=== PATIENT | female | born 1960 | race Caucasian/White ===

== ENCOUNTER 2018-07-19 13:31 | Emergency (ER) | payer OTHER, MEDICARE ==
[2018-07-19] MEDS ORDERED: SODIUM CHLORIDE 0.9% 1,000 ML IV ONE (13:54)
[2018-07-19] MEDS ORDERED: LORazepam 2 MG/ML VIAL IVP STA (13:54)
--- NOTE | 2018-07-19 14:03 | ED Physician Documentation ---
History of Present Illness - Stated complaint Stated Complaint: RAPID HR - Chief complaint Chief Complaint: Cardiac - History obtained from History obtained from: Patient, Family - History of Present Illness Timing: Today Pain level max: 0 Pain level now: 0 Improved by: nothing Worsened by: nothing - Additonal information Additional information: Patient is a 58-year-old female who presents to the emergency department stating that she noticed her heart racing today. States that it was up to approximately 124 bpm. States that this happened during the past with no cause found. She is not currently taking any medications. States it happened recently at the dentist office as well. Denies any recent surgery, immobilization, chest pain today. She does feel slightly short of breath and just feels tired. States has had problems with her thyroid in the past but not currently. No recent travel. Started after drinking coffee this am. Review of Systems Ten Systems: 10 systems reviewed and negative Constitutional: denies: Fever, Chills Respiratory: denies: Cough GI: denies: Vomiting, Diarrhea : denies: Dysuria Skin: denies: Rash Musculoskeletal: denies: Neck pain, Back pain Neurologic: denies: Headache PD PAST MEDICAL HISTORY - Past Medical History Past Medical History: Yes Cardiovascular: Other Respiratory: Other Endocrine/Autoimmune: None GI: GERD, Cholelithiasis : None HEENT: None Psych: None Musculoskeletal: None Derm: None - Past Surgical History Past Surgical History: Yes General: Cholecystectomy /[employer]ER: Hysterectomy - Present Medications Home Medications: Ambulatory Orders Medication Instructions Recorded Confirmed No Known Home Medications [No 07/19/18 07/19/18 Known Home Medications] - Allergies Allergies/Adverse Reactions: Allergies Allergy/AdvReac Type Severity Reaction Status Date / Time Penicillins Allergy Intermediate Hives Verified 07/26/15 12:59 glatiramer acetate * AdvReac Severe SOB/ Verified 07/26/15 13:01 [From Copaxone] Tightness in throat esomeprazole magnesium * AdvReac Intermediate Itchy Verified 07/26/15 13:01 [From Nexium] throat metoclopramide HCl * AdvReac Intermediate Hyperactivi Verified 07/26/15 13:01 [From Reglan] ty iv contrast Allergy Severe Hives Uncoded 07/26/15 13:01 - Social History Does the pt smoke?: No Smoking Status: Never smoker Does the pt drink ETOH?: No Does the pt have substance abuse?: No - Immunizations Immunizations are current?: Yes - POLST Patient has POLST: No PD ED PE NORMAL - Vitals Vital signs reviewed: Yes - General General: Alert and oriented X 3, No acute distress, Well developed/nourished - HEENT HEENT: PERRL, Moist mucous membranes - Neck Neck: Supple, no meningeal sign - Cardiac Cardiac: No murmur, Other (tachycardic, regular) - Respiratory Respiratory: No respiratory distress, Clear bilaterally - Abdomen Abdomen: Soft, Non tender, Non distended - Derm Derm: Warm and dry - Extremities Extremities: No edema, No calf tenderness / cord - Neuro Neuro: Alert and oriented X 3 - Psych Psych: Normal mood, Normal affect Results - Vitals Vitals: Vital Signs - 24 hr 07/19/18 07/19/18 13:32 15:02 Temperature 36.5 C 36.9 C Heart Rate 117 H 101 H Respiratory 18 13 Rate Blood Pressure 166/94 H 143/99 H O2 Saturation 99 97 Oxygen O2 Source Room air - EKG (time done) 1339 Rate: Rate (enter#) (111) Rhythm: Sinus tachycardia [place]: Normal Intervals: Normal MI QRS: Normal Ischemia: Normal ST segments - Labs Labs: Laboratory Tests 07/19/18 07/19/18 07/19/18 13:55 14:01 14:01 WBC 8.9 RBC 4.42 Hgb 14.0 Hct 40.8 MCV 92.2 MCH 31.7 H MCHC 34.4 RDW 13.3 Plt Count 274 MPV 8.4 Neut # (Auto) 3.6 Lymph # (Auto) 4.2 H Snyder # (Auto) 0.7 Eos # (Auto) 0.4 Baso # (Auto) 0.1 Absolute Nucleated RBC 0.01 Nucleated RBC % 0.1 D-Dimer Sodium 139 Potassium 3.5 Chloride 102 Carbon Dioxide 27 Anion Gap 10.0 BUN 14 Creatinine 0.8 Estimated GFR (MDRD) 74 L Glucose 172 H Calcium 9.1 Total Bilirubin 0.5 AST 30 ALT 42 Alkaline Phosphatase 83 Troponin I Total Protein 7.5 Albumin 4.2 Globulin 3.3 Albumin/Globulin Ratio 1.3 Lipase 31 TSH Free T4 0.66 Urine Color Urine Clarity Urine pH Ur Specific [place] Urine Protein Urine Glucose (UA) Urine Ketones Urine Occult Blood Urine Nitrite Urine Bilirubin Urine Urobilinogen Ur Leukocyte Esterase Urine RBC Urine WBC Ur Squamous Epith Cells Urine Bacteria Ur Microscopic Review Urine Culture Comments 07/19/18 07/19/18 07/19/18 14:01 14:01 14:01 WBC RBC Hgb Hct MCV MCH MCHC RDW Plt Count MPV Neut # (Auto) Lymph # (Auto) Snyder # (Auto) Eos # (Auto) Baso # (Auto) Absolute Nucleated RBC Nucleated RBC % D-Dimer < 200.0 L Sodium Potassium Chloride Carbon Dioxide Anion Gap BUN Creatinine Estimated GFR (MDRD) Glucose Calcium Total Bilirubin AST ALT Alkaline Phosphatase Troponin I < 0.04 Total Protein Albumin Globulin Albumin/Globulin Ratio Lipase TSH 3.43 Free T4 Urine Color Urine Clarity Urine pH Ur Specific [place] Urine Protein Urine Glucose (UA) Urine Ketones Urine Occult Blood Urine Nitrite Urine Bilirubin Urine Urobilinogen Ur Leukocyte Esterase Urine RBC Urine WBC Ur Squamous Epith Cells Urine Bacteria Ur Microscopic Review Urine Culture Comments 07/19/18 14:11 WBC RBC Hgb Hct MCV MCH MCHC RDW Plt Count MPV Neut # (Auto) Lymph # (Auto) Snyder # (Auto) Eos # (Auto) Baso # (Auto) Absolute Nucleated RBC Nucleated RBC % D-Dimer Sodium Potassium Chloride Carbon Dioxide Anion Gap BUN Creatinine Estimated GFR (MDRD) Glucose Calcium Total Bilirubin AST ALT Alkaline Phosphatase Troponin I Total Protein Albumin Globulin Albumin/Globulin Ratio Lipase TSH Free T4 Urine Color YELLOW Urine Clarity CLEAR Urine pH 6.0 Ur Specific [place] 1.025 Urine Protein NEGATIVE Urine Glucose (UA) NEGATIVE Urine Ketones NEGATIVE Urine Occult Blood NEGATIVE Urine Nitrite NEGATIVE Urine Bilirubin NEGATIVE Urine Urobilinogen 0.2 (NORMAL) Ur Leukocyte Esterase SMALL H Urine RBC 0-5 Urine WBC 4-5 Ur Squamous Epith Cells FEW Squamous Urine Bacteria Rare Ur Microscopic Review INDICATED Urine Culture Comments INDICATED PD MEDICAL DECISION MAKING - ED course Complexity details: reviewed results, re-evaluated patient, considered differential, d/w patient, d/w family ED course: Patient is a 58-year-old female who presents to the emergency department sinus tachycardia that started after drinking coffee today. Negative d-dimer. Clinically low risk for PE. No acute findings on laboratory testing. She feels better after Ativan. Will continue supportive care and follow-up with her doctor. We will have her avoid stimulants and caffeine. Patient counseled regarding signs and symptoms for which I believe and urgent re-evaluation would be necessary. Patient with good understanding of and agreement to plan and is comfortable going home at this time This document was made in part using voice recognition software. While efforts are made to proofread this document, sound alike and grammatical errors may occur. - Sepsis Event Vital Signs: Vital Signs - 24 hr 07/19/18 07/19/18 13:32 15:02 Temperature 36.5 C 36.9 C Heart Rate 117 H 101 H Respiratory 18 13 Rate Blood Pressure 166/94 H 143/99 H O2 Saturation 99 97 Oxygen O2 Source Room air Departure - Departure Disposition: 01 Home, Self Care Clinical Impression: Sinus tachycardia Condition: Good Instructions: ED Palpitations Follow-Up: your,doctor in 1 week [Other] Comments: Avoid stimulants and caffeine. return if you worsen. Discharge Date/Time: 07/19/18 15:04
[2018-07-19 14:07] LABS: BASOPHILS # (AUTO) 0.1 10^3/uL (0.0-0.1); BASOPHILS % (AUTO) 0.6 %; EOSINOPHILS # (AUTO) 0.4 10^3/uL (0.0-0.7); EOSINOPHILS % (AUTO) 4.2 %; LYMPHOCYTES # (AUTO) 4.2 10^3/uL (1.5-3.5); LYMPHOCYTES % (AUTO) 47.1 %; MEAN CORPUSCULAR HEMOGLOBIN 31.7 pg (27.0-31.0); MEAN CORPUSCULAR HGB CONC 34.4 g/dL (32.0-36.0); MEAN CORPUSCULAR VOLUME 92.2 fL (81.0-99.0); MEAN PLATELET VOLUME 8.4 fL (7.9-10.8); MONOCYTES # (AUTO) 0.7 10^3/uL (0.0-1.0); MONOCYTES % (AUTO) 7.5 %; NEUTROPHILS # (AUTO) 3.6 10^3/uL (1.5-6.6); NEUTROPHILS % (AUTO) 40.6 %; PLT - PLATELET COUNT 274 10^3/uL (130-450); RED BLOOD COUNT 4.42 10^6/uL (4.20-5.40); RED CELL DISTRIBUTION WIDTH 13.3 % (12.0-15.0); WHITE BLOOD COUNT 8.9 x10^3/uL (4.8-10.8)
[2018-07-19 14:14] LABS: BILIRUBIN,URINE NEGATIVE (NEGATIVE); GLUCOSE, URINE (UA) NEGATIVE (NEGATIVE); KETONES,URINE (UA) NEGATIVE (NEGATIVE); LEUKOCYTE ESTERASE, URINE SMALL (NEGATIVE); NITRITE,URINE NEGATIVE (NEGATIVE); OCCULT BLOOD,URINE NEGATIVE (NEGATIVE); PROTEIN,URINE NEGATIVE (NEGATIVE); UROBILINOGEN,URINE 0.2 (NORMAL) E.U./dL (NORMAL)
[2018-07-19 14:15] LABS: CLARITY,URINE CLEAR (CLEAR)
[2018-07-19 14:28] LABS: ALBUMIN 4.2 g/dL (3.2-5.5); ALBUMIN/GLOBULIN RATIO 1.3 (1.0-2.2); BILIRUBIN,TOTAL 0.5 mg/dL (0.2-1.0); CALCIUM 9.1 mg/dL (8.5-10.3); CREATININE 0.8 mg/dL (0.4-1.0); TOTAL PROTEIN 7.5 g/dL (6.7-8.2)
[2018-07-19 14:31] LABS: RBC,URINE 0-5 /HPF (0-5); SQUAMOUS EPITHELIAL CELL,UR FEW Squamous (<= Few)
[2018-07-19 14:32] LABS: BACTERIA,URINE Rare /HPF (None Seen)
[2018-07-19 15:03] VITALS: BP 143/99
== END 2018-07-19 15:04 | disposition home or self-care (01) ==
LOC: ED 13:31
DX: R00.0 Tachycardia, unspecified (principal)
CPT/HCPCS: 36415; 80053; 81001; 83690; 84439; 84443; 84484; 85025; 85379; 87086; 93005; 96374; 99283; J2060; 81003

== ENCOUNTER → 2018-07-22 | Outpatient (CLI) | payer OTHER, MEDICARE | LOC: LAB.R 08:00 → MERGE 20:53 | PROVIDERS: ATTEND Nurse Practitioner | DX: N39.0 Urinary tract infection, site not specified (principal) | CPT/HCPCS: 87086 ==

== ENCOUNTER → 2018-07-22 | Outpatient (CLI) | payer OTHER, MEDICARE | LOC: LAB.R 08:00 → MERGE 20:04 | PROVIDERS: ATTEND Nurse Practitioner | DX: N39.0 Urinary tract infection, site not specified (principal) | CPT/HCPCS: 81001; 81003; 87086 ==

== ENCOUNTER 2018-08-07 14:41 | Outpatient (CLI) | payer OTHER, MEDICARE ==
--- NOTE | 2018-08-07 16:45 | Ultrasound Report ---
Reason: PALPITATIONS,ENLARGED THYROID Procedure Date: 08/07/2018 Accession Number: [id number] / [id number] Procedure: US - Head or Neck Soft Tissue CPT Code: FULL RESULT: EXAM: THYROID ULTRASOUND EXAM DATE: 08/07/2018 02:55 PM. CLINICAL HISTORY: Palpitations, enlarged thyroid. COMPARISON: None. TECHNIQUE: Real time sonographic imaging of the thyroid was performed by the mdm developer. Multiple hostess party sales representative static images were saved for review. FINDINGS: THYROID GLAND: Right Lobe: 4.2 x 1.1 x 1.3 cm, volume 3.1 cc. Normal background echotexture. Right Lobe Nodules: None. Left Lobe: 3.3 x 0.8 x 1.0 cm, volume 1.4 cc. Normal background echotexture. Left Lobe Nodules: None. Isthmus: 0.3 cm AP. Isthmic Nodules: None. LYMPH NODES: No adenopathy demonstrated in the central or lateral compartment. OTHER: Marked global hypervascularity throughout the thyroid by color Doppler. IMPRESSION: Thyroiditis. RADIA
== END 2018-08-07 14:42 | disposition home or self-care (01) ==
LOC: DI 14:41
PROVIDERS: ATTEND Nurse Practitioner
DX: E04.9 Nontoxic goiter, unspecified (principal); R00.2 Palpitations; E06.9 Thyroiditis, unspecified
CPT/HCPCS: 36415; 76536; 81599; 84439; 84443; 84481; 86376; 86800

== ENCOUNTER 2018-08-07 14:48 | Outpatient (CLI) | payer OTHER, MEDICARE ==
[2018-08-07 16:48] LABS: THYROID STIMULATING HORMONE 2.91 uIU/mL (0.34-5.60)
[2018-08-07 16:50] LABS: FREE T4 (FREE THYROXINE) 0.79 ng/dL (0.58-1.64)
[2018-08-11 16:36] LABS: THYROID PEROXIDASE ANTIBODIES 5 IU/mL (<9)
== END 2018-08-07 14:49 | disposition home or self-care (01) ==
LOC: LAB 14:48
PROVIDERS: ATTEND Family Medicine
DX: E04.9 Nontoxic goiter, unspecified (principal); R00.2 Palpitations
CPT/HCPCS: 36415; 81599; 84439; 84443; 84481; 86376; 86800

== ENCOUNTER 2022-07-10 08:00 | Outpatient (CLI) | payer MEDICARE, OTHER ==
[2022-07-11 11:03] LABS: BILIRUBIN,URINE NEGATIVE (NEGATIVE); CLARITY,URINE HAZY (CLEAR); GLUCOSE, URINE (UA) NEGATIVE (NEGATIVE); KETONES,URINE (UA) NEGATIVE (NEGATIVE); LEUKOCYTE ESTERASE, URINE SMALL (NEGATIVE); NITRITE,URINE NEGATIVE (NEGATIVE); OCCULT BLOOD,URINE NEGATIVE (NEGATIVE); PROTEIN,URINE NEGATIVE (NEGATIVE); UROBILINOGEN,URINE 0.2 (NORMAL) E.U./dL (NORMAL)
[2022-07-11 11:18] LABS: BACTERIA,URINE Moderate /HPF (None Seen); RBC,URINE 0-5 /HPF (0-5); SQUAMOUS EPITHELIAL CELL,UR RARE Squamous (<= Few)
== END 2022-07-10 23:59 | disposition home or self-care (01) ==
LOC: LAB.WC 08:00
PROVIDERS: ATTEND Nurse Practitioner
DX: R30.0 Dysuria (principal)
CPT/HCPCS: 81001; 87077; 87086; 87181

== ENCOUNTER 2022-07-31 09:51 | Outpatient (CLI) | payer MEDICARE ==
--- NOTE | 2022-08-01 09:54 | Mammography Report ---
BILATERAL DIGITAL SCREENING MAMMOGRAM 3D/2D: 07/31/2022 CLINICAL: Routine screening. Family history of breast cancer. Comparison is made to exam dated: 10/28/2007 mammogram - [facility]. Both breasts are heterogeneously dense, which may obscure small masses (category c / 51-75% glandula r tissue). There is an oval asymmetry with an obscured and circumscribed margin in the left breast at 7 o'clock posterior depth. No other significant masses, calcifications, or other findings are seen in either breast. IMPRESSION: INCOMPLETE: NEEDS ADDITIONAL IMAGING EVALUATION The oval asymmetry in the left breast is indeterminate. Additional views with possible ultrasound ar e recommended. This exam was interpreted at Station ID: [id number]. NOTE: For mammograms, a report in lay terms will be sent to the patient. Approximately 15% of breast malignancies will not be visualized mammographically. In the management of a palpable breast mass, a negative mammogram must not discourage biopsy of a clinically suspicious lesion. Electronically Signed By: Kristina lawrence/nehemiah:07/31/2022 17:59:30 ACR BI-RADS Category 0: Incomplete 3340F PARENCHYMAL PATTERN: (D) - The breast(s) demonstrate(s) heterogeneously dense fibroglandular parmaikely ma. BI-RADS CATEGORY: (0) - 0 Mammo and US [id number] Immediate follow-up LATERALITY: (B)
== END 2022-07-31 09:52 | disposition home or self-care (01) ==
LOC: DI.S 09:51
PROVIDERS: ATTEND Nurse Practitioner
DX: Z12.31 Encounter for screening mammogram for malignant neoplasm of breast (principal); Z80.3 Family history of malignant neoplasm of breast; R92.8 Other abnormal and inconclusive findings on diagnostic imaging of breast

== ENCOUNTER 2022-08-06 10:16 | Outpatient (CLI) | payer MEDICARE | END 2022-08-06 10:17 | disposition home or self-care (01) | LOC: LAB 10:16 | PROVIDERS: ATTEND Nurse Practitioner | DX: E06.3 Autoimmune thyroiditis (principal); E04.9 Nontoxic goiter, unspecified | CPT/HCPCS: 36415; 84443 ==

== ENCOUNTER 2022-12-07 13:22 | Outpatient (CLI) | payer MEDICARE ==
--- NOTE | 2022-12-07 14:20 | XRAY Report ---
PROCEDURE: Hips 2V BILAT INDICATIONS: STIFFNESS RIGHT HIP, MS, LOWER EST WEAKNESS TECHNIQUE: 2 views of the hip were acquired. COMPARISON: None FINDINGS: Bones: Normal overall mineralization. No acute fractures or dislocation. There are severe degenerati ve changes in both hip joints, but right asymmetrically worse than the left. There is bone on bone al sina the superior acetabulum, subcortical sclerosis, cystic changes, and prominent spurs on both sides of the joint space. There is slight flattening of the femoral head shape. There are similar but less extensive findings in the left femoral acetabular joint with small amount of joint space maintained. No suspicious bone lesions. The visualized pelvic ring appears intact. Soft tissues: No suspicious soft tissue calcifications or masses. IMPRESSION: 1. Severe bilateral femoral acetabular osteoarthritic change, right moderately worse than left. Reviewed by: Kristina Elias MD on 12/07/2022 1:18 PM [place] Approved by: Kristina Elias MD on 12/07/2022 1:18 PM [place] Station ID: [id number]
== END 2022-12-07 13:23 | disposition home or self-care (01) ==
LOC: DI 13:22
PROVIDERS: ATTEND Nurse Practitioner Family
DX: M16.0 Bilateral primary osteoarthritis of hip (principal); G35 Multiple sclerosis